=== PATIENT | male | born 1955 | race African-American/Black ===

== ENCOUNTER 2016-06-01 19:40 | Emergency (ER) | payer OTHER ==
[~2016-06-01] VITALS: Ht 157.5 cm; Wt 70.3 kg
[2016-06-01 22:22] LABS: PLATELET COUNT 218 K/uL (142-355)
[2016-06-01 22:31] LABS: POTASSIUM 4.2 mmol/L (3.6-5.2); SODIUM 136 mmol/L (136-145)
[2016-06-02 01:45] VITALS: BP 135/77; TEMP 98.3
== END 2016-06-02 01:35 | disposition home or self-care (01) ==
LOC: ED 19:40
PROVIDERS: Emergency Medicine
PROC: 2W3QX1Z Immobilization of Right Lower Leg using Splint (ICD-10-PCS; principal; 2016-06-01)
DX: S30.1XXA Contusion of abdominal wall, initial encounter (principal); S82.291A Other fracture of shaft of right tibia, initial encounter for closed fracture; S81.811A Laceration without foreign body, right lower leg, initial encounter; W20.8XXA Other cause of strike by thrown, projected or falling object, initial encounter; Y92.821 Forest as the place of occurrence of the external cause
CPT/HCPCS: 36415; 80053; 81000; 83690; 85027; 90715; 96374; 99284; J0690; Q9963